=== PATIENT | female | born 1975 | race Caucasian/White ===

== ENCOUNTER → 2023-01-26 | Day surgery (SDC) | payer BC ==
[~2023-01-26] MED LIST: HYOSCYAMINE SULFATE 0.5 MG/ML INJ ONE; LACTATED RINGER'S 1,000 ML ONE; LIDOCAINE HCL 2% LOCAL INJ 5 ML SDV VIAL INJ ONE; MIDAZOLAM HCL 2 MG/2 ML VIAL ONE; PROPOFOL IV EMULSION 10 MG/ML 20 ML VIAL ONE
[2023-01-26 11:03] VITALS: TEMP 97
[2023-01-26 11:25] VITALS: BP 126/75; PULSE 83; RESP 18; O2SAT 99
== END | disposition home or self-care (01) ==
LOC: OR 08:40
PROVIDERS: ATTEND Internal Medicine Gastroenterology
DX: Z12.11 Encounter for screening for malignant neoplasm of colon (principal); K63.5 Polyp of colon; K64.8 Other hemorrhoids; Z71.3 Dietary counseling and surveillance; D64.9 Anemia, unspecified; J45.909 Unspecified asthma, uncomplicated; R03.0 Elevated blood-pressure reading, without diagnosis of hypertension; Z71.89 Other specified counseling; F41.9 Anxiety disorder, unspecified; F32.A Depression, unspecified; Z79.899 Other long term (current) drug therapy
CPT/HCPCS: 45380; 81025; J1980; J2001; J2250; J2704; J7121; 45378